=== PATIENT | female | born 1945 | race Caucasian/White ===

== ENCOUNTER 2022-06-03 11:01 | Outpatient (CLI) | payer MEDICARE, BC, SELFPAY ==
[2022-06-03 10:14] LABS: Creatinine Urine 109.5 mg/dL
[2022-06-03 10:21] LABS: Microalbumin Creatinine Ratio 40 mg/g (0-30); Microalbumin Urine 5 mg/dL
[2022-06-03 10:30] LABS: Albumin* 4.3 g/dL (3.3-5.0); Chloride* 103 mmol/L (96-114); Potassium* 3.8 mmol/L (3.6-5.1); Sodium* 136 mmol/L (135-149)
[2022-06-03 10:32] LABS: Carbon Dioxide* 22 mmol/L (20-32); Cholesterol* 180 mg/dL (90-199); Creatinine* 0.7 mg/dL (0.5-1.5); Estimated Glomerular Filt Rate 89 ml/min
[2022-06-03 10:33] LABS: Alanine Aminotransferase* 25 U/L (4-35); Alkaline Phosphatase* 80 U/L (40-150); Aspartate Amino Transferase* 31 U/L (12-35); Bilirubin Total* 0.6 mg/dL (0.1-1.5); Blood Urea Nitrogen* 20 mg/dL (7-30); Calcium* 9.6 mg/dL (8.4-10.6); Glucose* 151 mg/dL (60-115); Total Protein* 6.9 g/dL (6.0-8.3); Triglycerides* 188 mg/dL (40-149)
[2022-06-03 10:34] LABS: HDL Cholesterol* 52 mg/dL (>=50); LDL Cholesterol Calculated 90 mg/dL (<100)
== END 2022-06-03 11:02 | disposition home or self-care (01) ==
PROVIDERS: PCP Internal Medicine; Visit Provider Internal Medicine
DX: Z00.00 Encounter for general adult medical examination without abnormal findings (principal); E11.9 Type 2 diabetes mellitus without complications; E78.5 Hyperlipidemia, unspecified; H35.00 Unspecified background retinopathy; I48.91 Unspecified atrial fibrillation
CPT/HCPCS: 80053; 80061; 82043; 82570

== ENCOUNTER 2022-12-04 13:52 | Outpatient (CLI) | payer MEDICARE, BC, SELFPAY | END 2022-12-04 13:53 | disposition home or self-care (01) | PROVIDERS: PCP Internal Medicine; Visit Provider Internal Medicine | DX: Z51.81 Encounter for therapeutic drug level monitoring (principal); I35.0 Nonrheumatic aortic (valve) stenosis; I51.7 Cardiomegaly; Z79.01 Long term (current) use of anticoagulants | CPT/HCPCS: 93306 ==

== ENCOUNTER 2023-04-08 10:37 | Outpatient (CLI) | payer MEDICARE, BC, SELFPAY ==
--- NOTE | 2023-04-08 10:45 | CRLHL7_ITS ---
For Patients: As a result of the Cures Act, medical imaging exams and procedure reports are released immediately into your electronic medical record. You may view this report before your referring provider. If you have questions, please contact your health care provider. BILATERAL SCREENING MAMMOGRAM WITH COMPUTER-AIDED DETECTION AND TOMOSYNTHESIS TECHNIQUE: CC and MLO views were obtained. These mammographic images have been obtained using full-field digital technique. These mammographic images were interpreted with the benefit of computer-aided detection. Breast Tomosynthesis was used in this interpretation. COMPARISON FILM: 01/16/22, 12/14/20, 11/17/19. FINDINGS: The breasts are heterogeneously dense, which may obscure small masses IMPRESSION: There is no radiographic evidence for malignancy. ASSESSMENT: BI-RADS Category 2: Benign RECOMMENDATION: Routine screening mammogram in 1 year. A lay language report of this examination will be provided to the patient. Gian Robertson M.D. Diagnostic/Nuclear Medicine Radiologist [email or web address] TERESA/Dictated by: Gian Robertson MD @ 04/08/2023 11:58:00 AM (Electronically Signed)
== END 2023-04-08 10:38 | disposition home or self-care (01) ==
PROVIDERS: PCP Internal Medicine; Visit Provider Internal Medicine
DX: Z12.31 Encounter for screening mammogram for malignant neoplasm of breast (principal); R92.2 Inconclusive mammogram
CPT/HCPCS: 77063; 77067

== ENCOUNTER 2023-06-10 15:44 | Outpatient (REF) | payer MEDICARE, BC, SELFPAY ==
[2023-06-10 16:34] LABS: Chloride* 104 mmol/L (96-114); Hemoglobin A1C* 6.93 % (0-5.6); Sodium* 135 mmol/L (135-149)
[2023-06-10 16:35] LABS: Potassium* 4.8 mmol/L (3.6-5.1)
[2023-06-10 16:37] LABS: Cholesterol* 164 mg/dL (90-199); Creatinine* 0.7 mg/dL (0.5-1.5); Estimated Glomerular Filt Rate 88 ml/min
[2023-06-10 16:38] LABS: Anion Gap 10 mEq/L (7-15); Blood Urea Nitrogen* 18 mg/dL (7-30); Calcium* 9.8 mg/dL (8.4-10.6); Carbon Dioxide* 21 mmol/L (20-32); Glucose* 143 mg/dL (60-115); HDL Cholesterol* 42 mg/dL (>=50); LDL Cholesterol Calculated 85 mg/dL (<100); Triglycerides* 186 mg/dL (40-149)
== END 2023-06-10 15:45 | disposition home or self-care (01) ==
LOC: NPINS 15:44
PROVIDERS: PCP Internal Medicine; Visit Provider Internal Medicine
DX: Z00.00 Encounter for general adult medical examination without abnormal findings (principal); I10 Essential (primary) hypertension; E78.5 Hyperlipidemia, unspecified; E11.9 Type 2 diabetes mellitus without complications; I48.91 Unspecified atrial fibrillation; Z79.01 Long term (current) use of anticoagulants
CPT/HCPCS: 80048; 80061; 83036

== ENCOUNTER 2023-06-29 14:07 | Outpatient (CLI) | payer MEDICARE, BC, SELFPAY | END 2023-06-29 14:08 | disposition home or self-care (01) | LOC: NFLDREF 07-01 00:50 | PROVIDERS: PCP Internal Medicine; Referring Provider Internal Medicine; Visit Provider Internal Medicine | DX: Z00.00 Encounter for general adult medical examination without abnormal findings (principal); E78.5 Hyperlipidemia, unspecified; E11.9 Type 2 diabetes mellitus without complications; I10 Essential (primary) hypertension; I35.0 Nonrheumatic aortic (valve) stenosis; I48.91 Unspecified atrial fibrillation | CPT/HCPCS: 80053; 80061 ==

== ENCOUNTER 2023-09-18 09:50 | Outpatient (CLI) | payer MEDICARE, BC, SELFPAY | END 2023-09-18 09:51 | disposition home or self-care (01) | PROVIDERS: PCP Internal Medicine; Visit Provider Internal Medicine Cardiovascular Disease | DX: I48.91 Unspecified atrial fibrillation (principal); I35.0 Nonrheumatic aortic (valve) stenosis; I51.7 Cardiomegaly; I34.0 Nonrheumatic mitral (valve) insufficiency | CPT/HCPCS: 93306 ==

== ENCOUNTER 2023-12-29 13:24 | Outpatient (REF) | payer MEDICARE, BC, SELFPAY ==
[2023-12-29 14:46] LABS: Hemoglobin A1C* 6.7 % (0-5.6)
== END 2023-12-29 13:25 | disposition home or self-care (01) ==
LOC: NPINS 13:24
PROVIDERS: PCP Internal Medicine; Visit Provider Internal Medicine
DX: E11.9 Type 2 diabetes mellitus without complications (principal)
CPT/HCPCS: 83036

== ENCOUNTER 2024-04-11 13:11 | Outpatient (CLI) | payer MEDICARE, BC, SELFPAY ==
--- NOTE | 2024-04-11 13:20 | CRLHL7_ITS ---
For Patients: As a result of the Century Cures Act, medical imaging exams and procedure reports are released immediately into your electronic medical record. You may view this report before your referring provider. If you have questions, please contact your health care provider. BILATERAL SCREENING MAMMOGRAM WITH COMPUTER-AIDED DETECTION AND TOMOSYNTHESIS TECHNIQUE: CC and MLO views were obtained. These mammographic images have been obtained using full-field digital technique. These mammographic images were interpreted with the benefit of computer-aided detection. Breast Tomosynthesis was used in this interpretation. COMPARISON FILM: 04/08/23, 01/16/22, 11/17/19. FINDINGS: There are scattered areas of fibroglandular density. IMPRESSION: There is no radiographic evidence for malignancy. ASSESSMENT: BI-RADS Category 2: Benign RECOMMENDATION: Routine screening mammogram in 1 year. A lay language report of this examination will be provided to the patient. Edgar Mendoza M.D. Diagnostic Radiologist [email or web address] SP/Dictated by: Edgar Mendoza MD @ 04/18/2024 12:35:00 PM (Electronically Signed)
== END 2024-04-11 13:12 | disposition home or self-care (01) ==
LOC: MAMMO 13:12
PROVIDERS: PCP Internal Medicine; Visit Provider Internal Medicine
DX: Z12.31 Encounter for screening mammogram for malignant neoplasm of breast (principal)
CPT/HCPCS: 77063; 77067

== ENCOUNTER 2024-08-02 12:31 | Outpatient (REF) | payer MEDICARE, SELFPAY ==
[2024-08-02 13:14] LABS: Hemoglobin A1C* 6.7 % (0-5.6)
[2024-08-02 13:29] LABS: Albumin* 4.3 g/dL (3.3-5.0)
[2024-08-02 13:30] LABS: Chloride* 101 mmol/L (96-114); Potassium* 4.4 mmol/L (3.6-5.1); Sodium* 137 mmol/L (135-149)
[2024-08-02 13:32] LABS: Anion Gap 11 mEq/L (7-15); Bilirubin Total* 0.7 mg/dL (0.1-1.5); Carbon Dioxide* 25 mmol/L (20-32); Cholesterol* 150 mg/dL (90-199); Creatinine* 0.8 mg/dL (0.5-1.5); Estimated Glomerular Filt Rate 75 ml/min; Total Protein* 6.8 g/dL (6.0-8.3)
[2024-08-02 13:33] LABS: Alanine Aminotransferase* 22 U/L (4-35); Alkaline Phosphatase* 66 U/L (40-150); Aspartate Amino Transferase* 26 U/L (12-35); Blood Urea Nitrogen* 21 mg/dL (7-30); Calcium* 9.9 mg/dL (8.4-10.6); Glucose* 126 mg/dL (60-115); HDL Cholesterol* 45 mg/dL (>=50); LDL Cholesterol Calculated 70 mg/dL (<100); Triglycerides* 176 mg/dL (40-149)
== END 2024-08-02 12:32 | disposition home or self-care (01) ==
LOC: NPINS 12:31
PROVIDERS: PCP Internal Medicine; Visit Provider Internal Medicine
DX: E11.9 Type 2 diabetes mellitus without complications (principal); E78.5 Hyperlipidemia, unspecified; I10 Essential (primary) hypertension; I48.91 Unspecified atrial fibrillation; Z79.01 Long term (current) use of anticoagulants; H35.30 Unspecified macular degeneration
CPT/HCPCS: 80053; 80061; 83036

== ENCOUNTER 2024-08-03 10:47 | Outpatient (REF) | payer MEDICARE, SELFPAY ==
[2024-08-03 11:23] LABS: Creatinine Urine 74.7 mg/dL
[2024-08-03 11:28] LABS: Microalbumin Creatinine Ratio 20 mg/g (0-30); Microalbumin Urine 2 mg/dL
== END 2024-08-03 10:48 | disposition home or self-care (01) ==
LOC: NPINS 10:47
PROVIDERS: PCP Internal Medicine; Visit Provider Internal Medicine
DX: I10 Essential (primary) hypertension (principal); E11.9 Type 2 diabetes mellitus without complications; I48.91 Unspecified atrial fibrillation; Z79.01 Long term (current) use of anticoagulants; E78.5 Hyperlipidemia, unspecified; H35.30 Unspecified macular degeneration
CPT/HCPCS: 82043; 82570

== ENCOUNTER 2025-01-25 10:31 | Outpatient (REF) | payer MEDICARE, OTHER, SELFPAY ==
[2025-01-25 10:51] LABS: Hemoglobin A1C* 6.1 % (0-5.6)
[2025-01-25 10:56] LABS: Albumin* 4.1 g/dL (3.3-5.0); Chloride* 104 mmol/L (96-114); Potassium* 3.9 mmol/L (3.6-5.1); Sodium* 137 mmol/L (135-149)
[2025-01-25 10:58] LABS: Anion Gap 9 mEq/L (7-15); Bilirubin Total* 0.7 mg/dL (0.1-1.5); Blood Urea Nitrogen* 19 mg/dL (7-30); Carbon Dioxide* 24 mmol/L (20-32); Cholesterol* 154 mg/dL (90-199); Creatinine* 0.9 mg/dL (0.5-1.5); Estimated Glomerular Filt Rate 65 ml/min; Total Protein* 6.3 g/dL (6.0-8.3)
[2025-01-25 10:59] LABS: Alanine Aminotransferase* 21 U/L (4-35); Alkaline Phosphatase* 67 U/L (40-150); Aspartate Amino Transferase* 25 U/L (12-35); Calcium* 9.7 mg/dL (8.4-10.6); Glucose* 121 mg/dL (60-115); HDL Cholesterol* 38 mg/dL (>=50); LDL Cholesterol Calculated 80 mg/dL (<100); Triglycerides* 180 mg/dL (40-149)
== END 2025-01-25 10:32 | disposition home or self-care (01) ==
LOC: NPINS 10:31
PROVIDERS: PCP Internal Medicine; Visit Provider Internal Medicine
DX: I10 Essential (primary) hypertension (principal); E78.5 Hyperlipidemia, unspecified; E11.9 Type 2 diabetes mellitus without complications
CPT/HCPCS: 80053; 80061; 83036